=== PATIENT | female | born 1990 | race Caucasian/White ===

== ENCOUNTER 2021-06-12 08:56 | Emergency (ER) | payer OTHER, SELFPAY ==
--- NOTE | ~2021-06-12 | XR_ITS ---
EXAMINATION: XR chest 1V portable DATE: 06/12/2021 09:42 INDICATION: Wheezing, shortness of breath, and cough. TECHNIQUE: A single frontal view of the chest was obtained. COMPARISON: Chest 2 views 12/27/2016, chest CT 12/27/2016 FINDINGS: The chest demonstrates clear lungs without pneumonia, pleural effusion, or pneumothorax. Th e heart size is normal. IMPRESSION: 1. No acute cardiopulmonary disease. Reviewed, dictated and finalized at location A.
[2021-06-12 08:59] VITALS: BP 121/82; PULSE 97; RESP 16; TEMP 36.4; O2SAT 100
[2021-06-12 09:06] VITALS: O2SAT 96
--- NOTE | 2021-06-12 09:13 | ED.URI ---
HPI - URI/Sore Throat General Chief Complaint: Upper Respiratory Infection Stated Complaint: cough Time Seen by Provider: 06/12/21 09:05 Source: patient Mode of arrival: ambulatory Limitations: no limitations History of Present Illness HPI Narrative: 30 year old female with history of asthma, depression, anxiety, and reflux presents today with complaints of congestion and wheezing that started on saturday. Patient endorses cough, congestion, and left sided pleuritic pain. Patient denies fever, runny nose, sore throat, n/v/d, or abdominal pain. She has been using her inhaler without any releif at this time. Related Data Home Medications Medication Instructions Recorded Confirmed buspirone 5 mg PO BID 03/17/19 03/17/19 cyclobenzaprine 10 mg PO TID 03/17/19 03/17/19 loratadine 10 mg PO DAILY 03/17/19 03/17/19 norethindrone-e.estradiol-iron 1 tablet PO HS 03/17/19 03/17/19 [Vinnie Fe 04/20 (28)] omeprazole 20 mg PO HS 03/17/19 03/17/19 oxycodone 5 mg PO Q4H PRN 03/17/19 03/17/19 tramadol 50 mg PO Q6H PRN 03/17/19 03/17/19 Allergies Allergy/AdvReac Type Severity Reaction Status Date / Time ciprofloxacin Allergy Unknown Nausea Verified 09/02/18 13:08 pork derived (porcine) Allergy Unknown Verified 03/17/19 19:08 mushroom Allergy Unknown Uncoded 03/17/19 19:10 vicodin Allergy Unknown Uncoded 03/17/19 19:11 Review of Systems Review of Systems: CONSTITUTIONAL: Denies fever, chills, or sweats. EYES: Denies visual changes, redness, or discharge. ENT: Congestion. Denies rhinorrhea, sore throat, or otalgia. CARDIOVASCULAR: Denies chest pain, palpitations, or edema. RESPIRATORY: Left-sided pleuritic chest pain only with cough. GASTROINTESTINAL: Denies abdominal pain, nausea, vomiting, or diarrhea. GENITOURINARY: Denies dysuria or hematuria. SKIN: Denies rash or itching. MUSCULOSKELETAL: Denies back pain, joint pain, or myalgia. NEUROLOGIC: Denies headache, numbness, dizziness, or weakness. PSYCHIATRIC: Denies anxiety or depression. PMFSH Past Medical History Medical History Chiari malformation type I IBS (irritable bowel syndrome) Migraine headache Muscle spasm Family History Family History Mother Acute myocardial infarction Father Hypertension Social History Social History Smoking status: Never smoker Alcohol intake: current Drinks per week: 0 Substance use: never Substance use type: does not use Spiritual care concerns: No Agree to blood products: Yes Exam Narrative: GENERAL: Well-appearing, well-nourished, and in no acute distress. HEAD: Normocephalic, atraumatic. EYES: PERRLA and EOMI. ENT: Nares clear, no rhinorrhea or epistaxis. Mucous membranes moist. Oropharynx without tonsillar hypertrophy exudate or other lesions. Bilateral TMs pearly ham nonbulging NECK: Supple. No adenopathy or masses. No carotid bruits or JVD CHEST: Expiratory wheezing bilateral lower lobes No respiratory distress. HEART: Regular rate and rhythm. No murmur heard. Normal peripheral pulses. ABDOMEN: Soft, nontender, nondistended, normal active bowel sounds. EXTREMITIES: Normal range of motion. No edema. SKIN: Warm, dry, no rash. NEURO: No focal deficits. Alert and oriented x3. PSYCH: Normal mood and affect. Course Reevaluation(s) Reevaluation #1: Patient notes improvement with breathing after albuterol treatment. Wheezing cleared with cough at this time. Date: 06/12/21 Time: 09:55 Vital Signs Vital signs: Vital Signs Temperature 36.4 C 06/12/21 08:59 Pulse Rate 97 06/12/21 08:59 Respiratory Rate 16 06/12/21 08:59 Blood Pressure 121/82 06/12/21 08:59 Pulse Oximetry 100 06/12/21 08:59 Temperature 37.1 C 06/12/21 11:09 Pulse Rate 91 06/12/21 11:09 Respiratory Rate 16 06/12/21 11:09 Blood Pressure 109/75 06/12/21
[2021-06-12] MEDS: predniSONE 40 MG, predniSONE 10 MG 50 MG PO (09:21)
[2021-06-12] MEDS: ALBUTEROL SULFATE NEB 2.5 MG/0.5 ML INH 5 MG INHALATION (09:23)
[2021-06-12 10:06] LABS: SARS-CoV-2 RNA PCR Negative
[2021-06-12 11:09] VITALS: BP 109/75; PULSE 91; RESP 16; TEMP 37.1; O2SAT 97
== END 2021-06-12 11:15 | disposition home or self-care (01) ==
PROVIDERS: Emergency Provider Nurse Practitioner Family; PCP Physician Assistant
DX: J06.9 Acute upper respiratory infection, unspecified (principal); J45.901 Unspecified asthma with (acute) exacerbation; Z20.822 Contact with and (suspected) exposure to COVID-19; F41.9 Anxiety disorder, unspecified; F32.A Depression, unspecified; K21.9 Gastro-esophageal reflux disease without esophagitis; G93.5 Compression of brain; K58.9 Irritable bowel syndrome, unspecified
CPT/HCPCS: 71045; 94640; 99283; C9803; J7512; U0003; U0005

== ENCOUNTER 2024-11-13 10:59 | Outpatient (CLI) | payer BC, SELFPAY ==
--- OUTSIDE RECORDS SUMMARY | 2024-11-13 11:07 | XMS_ITS | Clinical Summary ---
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 Active meclizine (ANTIVERT) 25 MG Tablet Take 25 mg by mouth every 8 hours as needed. Active DULoxetine (CYMBALTA) [address] Particles Take 1 Cap by mouth daily. 30 Cap 3 8 Active Additional Information Patient taking differently:30 mg OralNIGHTLY, Reported on 12/03/2017 omeprazole (PRILOSEC) 20 MG CAPSULE DELAYED RELEASE Take 20 mg by mouth nightly. Active Active Problems Problem Noted Date Diagnosed Date Cholecystitis, acute 11/19/2017 Normal in second trimester 07/06/2016 Hiatal hernia 09/15/2015 Recurrent sinus infections 09/15/2015 Chiari malformation type I 06/07/2015 Intractable chronic migraine without aura and without status migrainosus 06/07/2015 Irritable bowel syndrome with diarrhea 6 Encounters Date Type Department Care Team Description 11/10/2024 10:35 AM CDT - 11/10/2024 11:59 PM CDT Hospital Encounter [facility] [address] [place] [address] Provider, Not On File Discharge Disposition: Discharged to home or Selfcare 11/10/2024 10:31 AM CDT - 11/10/2024 10:34 AM CDT [facility] [address] [place] [address] Provider, Not On File Discharge Disposition: Discharged to home or Selfcare 11/10/2024 10:30 AM CDT Hospital [facility] [address] [place] [address] Provider, Not On File Discharge Disposition: Discharged to home or Selfcare 11/05/2024 11:00 AM CDT - 11/05/2024 11:59 PM CDT Hospital Encounter [facility] [address] [place] [address] Markus Meyer, PAC Discharge Disposition: Discharged to home or Selfcare 11/05/2024 Travel 10/23/2024 Transcribe Orders [facility] Central Scheduling [address] [place] [address] Markus Meyer, PAC Other specified disorders of adrenal gland (Primary Dx) from Last 3 Months Family History Medical History Relation Name Comments Hypertension Father Migraines Father Cancer Maternal Grandfather colon, lung, and brain Cancer Maternal Grandmother Lung an d brain Heart Disease Mother Migraines Mother Diabetes Paternal Aunt 1 Diabetes Paternal Aunt 2 Diabetes Paternal Grandfather Melanoma Paternal Grandfather Prostate Cancer Paternal Grandfather Diabetes Paternal Grandmother Diabetes Paternal Uncle Relation Name Status Comments Father Alive Maternal Grandfather Maternal Grandmother Mother Alive Paternal Aunt 1 Alive Paternal Aunt 2 Alive Paternal Grandfather Alive Paternal Grandmother Alive Paternal Uncle Alive Social History Tobacco Use Types Packs/Day Years Used Date Smoking Tobacco: Never Smokeless Tobacco: Never Tobacco Cessation:Counseling Given: No Alcohol Use Standard Drinks/Week Comments Yes 0 (1 standard drink = 0.6 oz pur e alcohol) rarely Sexually Active Control Partners Comments Yes Male Comments Unknown Sex and Gender Information Value Date Recorded Sex Assigned at Not on file 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 Gender Identity Not on file Sexual Orientation Not on file Last Filed Vital Signs Vital Sign Reading Time Taken Comments Blood Pressure 124/80 01/16/2018 9:21 AM CDT Pulse 75 01/16/2018 9:21 AM CDT Temperature 36.7 C (98 F) 01/16/2018 9:21 AM CDT Respiratory Rate 16 01/16/2018 9:21 AM CDT Oxygen Saturation 97% 01/16/2018 9:21 AM CDT Inhaled Oxygen Concentration - - Weight 92.6 kg (204 lb 3.2 oz) 01/16/2018 9:21 A M CDT Height 166.6 cm (5' 5.6) 01/16/2018 9:21 AM CDT Body Mass Index 33.36 01/16/2018 9:21 AM CDT Plan of Treatment Health Maintenance Due Date Last Done Comments Hepatitis B Immunization (1 of 3 - 19+ 3-dose series) 11/13/2007 Pap Smear 2009 Human Papillomavirus (HPV) Immunization (1 - 3-dose SCDM series) 11/13/2015 Cervical Cancer Screening (CCS) 2018 HPV/Cotest 2018 SARS-COV-2 Immunization ( season) 2023 10/27/2020, 10/06/2020 Influenza Immunization (#1) 11/30/202412/31, 02/16/2019, 02/12/2019, Additional history exists Respiratory Syncytial Virus (RSV) Immunization (Adult) (1 - 1-dose 75+ series) 11/13/2063 DTaP/Tdap/Td Immunization Discontinued 10/29/2016 TdaP Immunization Completed 10/29/2016 Hepatitis C Virus (HCV) Screening Completed 06/08/2024 Meningococcal Immunization (ACWY) Aged Out No longer eligible based on patient's age to complete this topic Pneumococcal Immunization Combined Aged Out No longer eligible based on patient's age to complete this topic Rotavirus Immunization Aged Out No lo nger eligible based on patient's age to complete this topic Procedures Procedure Name Priority Date/Time Associated Diagnosis Comments MR REFERENCE IMAGES FOR IMAGE IMPORT Routine 11/10/2024 10:35 AM CDT MR REFERENCE IMAGES FOR IMAGE IMPORT Routine 11/10/2024 10:31 AM CDT MR REFERENCE IMAGES FOR IMAGE IMPORT Routine 11/10/2024 10:[address] ABDOMEN W/WO CONTRAST Routine 11/05/2024 12:10 PM CDT Other specified disorders of adrenal gland from Last 3 Months Results * MR REFERENCE IMAGES FOR IMAGE IMPORT (11/10/2024 10:35 AM CDT) Only the most recent of3 resultswithin the time period is included. us Not On File Provider IMG MR ORDERABLES Final Res ult * CT ABDOMEN W/WO CONTRAST (11/05/2024 12:10 PM CDT) Anatomical Region Laterality Modality Abdomen N/A Computed Tomogra phy 11/11/2024 4:44 PM CDT Impressions 11/11/2024 4:47 PM CDT IMPRESSION: 1. 8 mm right adrenal nodule compatible with an adrenal adenoma. 2. Fluid structure within the gallbladder fossa measuring 4.1 x 2.1 cm. These findings may represent subtotal cholecystectomy. If complete cholecystectomy was performed then this may represent a dilated cystic duct remnant. Correlate with history. Narrative 11/11/2024 4:47 PM CDT EXAM DESCRIPTION: CT ABDOMEN W/WO CONTRAST REASON FOR STUDY: Right adrenal mass seen on MRI t spine 08/23, has been having right sided pain for months. Hx cholecystectomy. TECHNIQUE: CT scan of the abdomen performed without and with intravenous and without oral contrast using helical scanning technique with dynamic intravenous contrast injection. Reconstructed coronal and sagittal MPR images reviewed. All images stored on PACS. Automated exposure control was used as a dose optimization technique for this examination. CONTRAST TYPE/DOSE: 100mL of IOPAMIDOL 76 % IV SOLN injected via Intravenous COMPARISON: MRI thoracic and lumbar spine 08/22/2024 FINDINGS: LOWER CHEST: Subsegmental atelectasis in the right middle lobe. LIVER: Normal size. No identified cystic or solid masses. GALLBLADDER: There are clips in the gallbladder fossa region. A fluid structure within the gallbladder fossa measuring 4.1 x 2.1 cm is noted (series 3, image 36). These findings may represent subtotal cholecystectomy. If complete cholecystectomy was performed then this may represent a dilated cystic duct remnant. Correlate with history. BILE DUCTS: No intrahepatic or extrahepatic ductal dilatation. SPLEEN: Normal size. No focal lesions. PANCREAS: No identified cystic or solid masses. No significant calcifications. No adjacent inflammation or peripancreatic fluid collections. Pancreatic duct not dilated. ADRENALS: There is a 8 mm nodule arising from the right adrenal medial limb. Noncontrast attenuation measures 11. Absolute washout 91%. KIDNEYS/URINARY TRACT: No identified significant cystic or solid masses. No stones. No hydronephrosis or hydroureter. Symmetric enhancement. GI: Trace hiatal hernia. No dilated bowel loops. No obvious wall thickening. Scattered diverticular disease without diverticulitis. PERITONEUM: No ascites or free air. RETROPERITONEUM: No adenopathy. VASCULATURE: No abdominal aortic aneurysm. MUSCULOSKELETAL: Chronic healed right anterolateral rib fractures. OTHER: No other significant abnormality. THIS IS AN ELECTRONICALLY VERIFIED FINAL REPORT 11/11/2024 4:44 PM - Electronically signed by Guy Staples M.D. MM: MM Report ID: [id number] Reading Location: [id number] Procedure Note Guy Staples MD - 11/11/2024 EXAM DESCRIPTION: CT ABDOMEN W/WO CONTRAST REASON FOR STUDY: Right adrenal mass seen on MRI t spine 08/23, has been having right sided pain for months. Hx cholecystectomy. TECHNIQUE: CT scan of the abdomen performed without and with intravenous and without oral contrast using helical scanning technique with dynamic intravenous contrast injection. Reconstructed coronal and sagittal MPR images reviewed. All images stored on PACS. Automated exposure control was used as a dose optimization technique for this examination. CONTRAST TYPE/DOSE: 100mL of IOPAMIDOL 76 % IV SOLN injected via Intravenous COMPARISON: MRI thoracic and lumbar spine 08/22/2024 FINDINGS: LOWER CHEST: Subsegmental atelectasis in the right middle lobe. LIVER: Normal size. No identified cystic or solid masses. GALLBLADDER: There are clips in the gallbladder fossa region. A fluid structure within the gallbladder fossa measuring 4.1 x 2.1 cm is noted (series 3, image 36). These findings may represent subtotal cholecystectomy. If complete cholecystectomy was performed then this may represent a dilated cystic duct remnant. Correlate with history. BILE DUCTS: No intrahepatic or extrahepatic ductal dilatation. SPLEEN: Normal size. No focal lesions. PANCREAS: No identified cystic or solid masses. No significant calcifications. No adjacent inflammation or peripancreatic fluid collections. Pancreatic duct not dilated. ADRENALS: There is a 8 mm nodule arising from the right adrenal medial limb. Noncontrast attenuation measures 11. Absolute washout 91%. KIDNEYS/URINARY TRACT: No identified significant cystic or solid masses. No stones. No hydronephrosis or hydroureter. Symmetric enhancement. GI: Trace hiatal hernia. No dilated bowel loops. No obvious wall thickening. Scattered diverticular disease without diverticulitis. PERITONEUM: No ascites or free air. RETROPERITONEUM: No adenopathy. VASCULATURE: No abdominal aortic aneurysm. MUSCULOSKELETAL: Chronic healed right anterolateral rib fractures. OTHER: No other significant abnormality. THIS IS AN ELECTRONICALLY VERIFIED FINAL REPORT 11/11/2024 4:44 PM - Electronically signed by Guy Staples M.D. MM: MM Report ID: [id number] Reading Location: [id number] IMPRESSION: 1. 8 mm right adrenal nodule compatible with an adrenal adenoma. 2. Fluid structure within the gallbladder fossa measuring 4.1 x 2.1 cm. These findings may represent subtotal cholecystectomy. If complete cholecystectomy was performed then this may represent a dilated cystic duct remnant. Correlate with history. 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
--- OUTSIDE RECORDS SUMMARY | 2024-11-13 11:07 | XMS_ITS | Clinical Summary ---
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 the right adrenal gland is incompletely evaluated. Lumbar spine: The alignment is normal. A 1.4 cm hemangioma within the L3 vertebral body. Vertebral bodies are normal in height without evidence of acute fracture. The visible bone marrow is normal. The conus medullaris terminates at the level of L2 and the distal spinal cord signal intensity is normal. A 6 x 5 mm synovial cyst in the left L3-L4 facet joint. Mild posterior disc bulge at L5-S1. The central canal is patent. The facets appear normal. No neural foraminal stenosis is seen. No soft tissue abnormality is identified. No evidence of syrinx. Procedure Note Rebeca Cid MD - 09/02/2024 PROCEDURE: MRI THORACIC SPINE WO CONTRAST, MRI LUMBAR SPINE WOCONTRAST, DATE/TIME OF EXAM: 08/22/2024 3:45 PM, LOCATION [facility] INDICATION: G95.0: Syrinx (HCC) M54.16: Lumbar radiculopathy EXAMINATION: Magnetic resonance imaging (MRI) of the thoracic and lumbar spine without contrast TECHNIQUE: MRI of the thoracic and lumbar spine was performed without intravenous contrast according to standard protocol. COMPARISON: No prior study is available for comparison at the time ofthis dictation. FINDINGS: Thoracic spine: The alignment is normal. Vertebral bodies are normal in height without evidence of acute fracture. Other than mild degenerative endplatechanges at multiple levels, the bone marrow signal is normal. The thoracicspinal cord appears normal. There is mild multilevel degenerative disc disease. There is a 4 mmright paracentral disc protrusion, causing chronic appearing compression andmild myelomalacia of the right aspect of the spinal cord. Otherwise, thecentral canal is patent. There are varying degrees of mild facet osteoarthritis.No neural foraminal stenosis is seen. No evidence of syrinx. A 14 x 8 mm nodule in the right adrenal gland is incompletely evaluated. Lumbar spine: The alignment is normal. A 1.4 cm hemangioma within the L3 vertebralbody. Vertebral bodies are normal in height without evidence of acutefracture. The visible bone marrow is normal. The conus medullaris terminates atthe level of L2 and the distal spinal cord signal intensity is normal. A 6 x5 mm synovial cyst in the left L3-L4 facet joint. Mild posterior disc bulge at L5-S1. The central canal is patent. Thefacets appear normal. No neural foraminal stenosis is seen. No soft tissue abnormality is identified. No evidence of syrinx. IMPRESSION: 1.No evidence of syrinx in the spinal cord. 2.A 4 mm right paracentral disc protrusion, causing chronic appearing compression and mild myelomalacia of the right aspect of the spinalcord. 3.No significant central canal or neuroforamina stenosis in the lumbar spine. 4.Indeterminant 14 x 8 mm nodule in the right adrenal gland. Recommend aCT of the abdomen using adrenal protocol to further evaluate. The report is dictated by Luis Alberto Rosado MD, (Distributor Sales Manager) Rebeca Tom MD have personally reviewed and interpreted this examination/study. > Interpreting Provider: Rebeca Cid MD on 09/02/2024 10:29 AM Diamond Hammer MD MR ORDERABLES Final Result * MRI Thoracic Spine Wo Contrast (08/22/2024 3:45 PM CDT) Anatomical Region Laterality Modality Chest Magnetic Resonan ce 09/02/2024 9:14 AM CDT Impressions 09/02/2024 10:29 AM CDT IMPRESSION: 1.No evidence of syrinx in the spinal cord. 2.A 4 mm right paracentral disc protrusion, causing chronic appearing compression and mild myelomalacia of the right aspect of the spinal cord. 3.No significant central canal or neuroforamina stenosis in the lumbar spine. 4.Indeterminant 14 x 8 mm nodule in the right adrenal gland. Recommend a CT of the abdomen using adrenal protocol to further evaluate. The report is dictated by Luis Alberto Rosado MD, (Distributor Sales Manager) Rebeca Tom MD have personally reviewed and interpreted this examination/study. > Interpreting Provider: Rebeca Cid MD on 09/02/2024 10:29 AM Narrative 09/02/2024 10:29 AM CDT PROCEDURE: MRI THORACIC SPINE WO CONTRAST, MRI LUMBAR SPINE WO CONTRAST, DATE/TIME OF EXAM: 08/22/2024 3:45 PM, LOCATION [facility] INDICATION: G95.0: Syrinx (HCC) M54.16: Lumbar radiculopathy EXAMINATION: Magnetic resonance imaging (MRI) of the thoracic and lumbar spine without contrast TECHNIQUE: MRI of the thoracic and lumbar spine was performed without intravenous contrast according to standard protocol. COMPARISON: No prior study is available for comparison at the time of this dictation. FINDINGS: Thoracic spine: The alignment is normal. Vertebral bodies are normal in height without evidence of acute fracture. Other than mild degenerative endplate changes at multiple levels, the bone marrow signal is normal. The thoracic spinal cord appears normal. There is mild multilevel degenerative disc disease. There is a 4 mm right paracentral disc protrusion, causing chronic appearing compression and mild myelomalacia of the right aspect of the spinal cord. Otherwise, the central canal is patent. There are varying degrees of mild facet osteoarthritis. No neural foraminal stenosis is seen. No evidence of syrinx. A 14 x 8 mm nodule in the right adrenal gland is incompletely evaluated. Lumbar spine: The alignment is normal. A 1.4 cm hemangioma within the L3 vertebral body. Vertebral bodies are normal in height without evidence of acute fracture. The visible bone marrow is normal. The conus medullaris terminates at the level of L2 and the distal spinal cord signal intensity is normal. A 6 x 5 mm synovial cyst in the left L3-L4 facet joint. Mild posterior disc bulge at L5-S1. The central canal is patent. The facets appear normal. No neural foraminal stenosis is seen. No soft tissue abnormality is identified. No evidence of syrinx. Procedure Note Rebeca Cid MD - 09/02/2024 PROCEDURE: MRI THORACIC SPINE WO CONTRAST, MRI LUMBAR SPINE WOCONTRAST, DATE/TIME OF EXAM: 08/22/2024 3:45 PM, LOCATION [facility] INDICATION: G95.0: Syrinx (HCC) M54.16: Lumbar radiculopathy EXAMINATION: Magnetic resonance imaging (MRI) of the thoracic and lumbar spine without contrast TECHNIQUE: MRI of the thoracic and lumbar spine was performed without intravenous contrast according to standard protocol. COMPARISON: No prior study is available for comparison at the time ofthis dictation. FINDINGS: Thoracic spine: The alignment is normal. Vertebral bodies are normal in height without evidence of acute fracture. Other than mild degenerative endplatechanges at multiple levels, the bone marrow signal is normal. The thoracicspinal cord appears normal. There is mild multilevel degenerative disc disease. There is a 4 mmright paracentral disc protrusion, causing chronic appearing compression andmild myelomalacia of the right aspect of the spinal cord. Otherwise, thecentral canal is patent. There are varying degrees of mild facet osteoarthritis.No neural foraminal stenosis is seen. No evidence of syrinx. A 14 x 8 mm nodule in the right adrenal gland is incompletely evaluated. Lumbar spine: The alignment is normal. A 1.4 cm hemangioma within the L3 vertebralbody. Vertebral bodies are normal in height without evidence of acutefracture. The visible bone marrow is normal. The conus medullaris terminates atthe level of L2 and the distal spinal cord signal intensity is normal. A 6 x5 mm synovial cyst in the left L3-L4 facet joint. Mild posterior disc bulge at L5-S1. The central canal is patent. Thefacets appear normal. No neural foraminal stenosis is seen. No soft tissue abnormality is identified. No evidence of syrinx. IMPRESSION: 1.No evidence of syrinx in the spinal cord. 2.A 4 mm right paracentral disc protrusion, causing chronic appearing compression and mild myelomalacia of the right aspect of the spinalcord. 3.No significant central canal or neuroforamina stenosis in the lumbar spine. 4.Indeterminant 14 x 8 mm nodule in the right adrenal gland. Recommend aCT of the abdomen using adrenal protocol to further evaluate. The report is dictated by Luis Alberto Rosado MD, (Distributor Sales Manager) I, Rebeca Cid MD have personally reviewed and interpreted this examination/study. > Interpreting Provider: Rebeca Cid MD on 09/02/2024 10:29 AM Diamond Hammer MD MR ORDERABLES Final Result * MRI Cervical Spine Wo Contrast (08/22/2024 3:45 PM CDT) Anatomical Region Laterality Modality Pelvis Magnetic Resonan ce 09/01/2024 3:28 PM CDT Impressions 09/01/2024 3:32 PM CDT IMPRESSION: 1. Redemonstration of postoperative changes of suboccipital craniotomy for decompression. The cerebellar tonsils are at appreciated positions. No stenosis in the foramen magnum. No evidence of syrinx or abnormalities in the cervical spinal cord. > Interpreting Provider: Rebeca Cid MD on 09/01/2024 3:32 PM Narrative 09/01/2024 3:32 PM CDT PROCEDURE: MRI CERVICAL SPINE WO CONTRAST, DATE/TIME OF EXAM: 08/22/2024 3:45 PM, LOCATION [facility] INDICATION: G95.0: Syrinx (HCC) ADDITIONAL CLINICAL INFORMATION: Ordering Provider Reason For Exam: Technologist Note: Additional: EXAMINATION: Magnetic resonance imaging (MRI) of the cervical spine without contrast TECHNIQUE: MRI of the cervical spine was performed without intravenous contrast according to standard protocol. COMPARISON: Cervical spine MRI dated 05/16/2023. FINDINGS: Redemonstration of postoperative changes of suboccipital craniotomy for decompression. The cerebellar tonsils are at appreciated positions. No stenosis in the foramen magnum. No evidence of syrinx or other cord abnormalities. The alignment is normal. The prevertebral soft tissue is normal in thickness. Vertebral bodies are normal in height without evidence of acute fracture. The visible bone marrow is normal. The craniocervical junction is normal. The spinal cord appears normal. The intervertebral discs appear normal. The central canal is patent. The facets appear normal. The uncovertebral joints appear normal. No neural foraminal stenosis is seen. Normal flow voids are identified in the vertebral arteries. No soft tissue abnormality is identified. Procedure Note Rebeca Cid MD - 09/01/2024 PROCEDURE: MRI CERVICAL SPINE WO CONTRAST, DATE/TIME OF EXAM:08/22/2024 3:45 PM, LOCATION [facility] INDICATION: G95.0: Syrinx (HCC) ADDITIONAL CLINICAL INFORMATION: Ordering Provider Reason For Exam: Technologist Note: Additional: EXAMINATION: Magnetic resonance imaging (MRI) of the cervical spinewithout contrast TECHNIQUE: MRI of the cervical spine was performed without intravenous contrast according to standard protocol. COMPARISON: Cervical spine MRI dated 05/16/2023. FINDINGS: Redemonstration of postoperative changes of suboccipital craniotomy for decompression. The cerebellar tonsils are at appreciated positions. No stenosis in the foramen magnum. No evidence of syrinx or other cord abnormalities. The alignment is normal. The prevertebral soft tissue is normal in thickness. Vertebral bodies are normal in height without evidence ofacute fracture. The visible bone marrow is normal. The craniocervical junctionis normal. The spinal cord appears normal. The intervertebral discs appear normal. The central canal is patent. The facets appear normal. The uncovertebral joints appear normal. No neural foraminal stenosis is seen. Normal flow voids are identified in the vertebral arteries. No softtissue abnormality is identified. IMPRESSION: 1. Redemonstration of postoperative changes of suboccipital craniotomyfor decompression. The cerebellar tonsils are at appreciated positions. No stenosis in the foramen magnum. No evidence of syrinx or abnormalitiesin the cervical spinal cord. > Interpreting Provider: Rebeca Cid MD on 09/01/2024 3:32 PM Diamond Hammer MD MR ORDERABLES Final Result from Last 3 Months Insurance MEDICAID - OUT OF STATE ANTHEM ANTHEM Advance Directives * Full Code (Latest Code Status on File) Date Activated Date Inactivated Comments 03/12/2019 1:45 PM 03/17/2019 4:20 PM Care Teams Pododermatologist Relationship Specialty Start Date End Date Markus Meyer PA [address] [place] [address] PCP - General Physician Ore Buyer 09/22/13
--- OUTSIDE RECORDS SUMMARY | 2024-11-13 11:07 | XMS_ITS | Clinical Summary ---
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 Legal Sex Female 4:59 PM CDT Gender Identity Not on file Sexual Orientation Not on file Last Filed Vital Signs Vital Sign Reading Time Taken Comments Blood Pressure 129/89 04/15/2024 3:19 PM SPRINKLER WORKER Pulse 88 04/15/2024 3:19 PM SPRINKLER WORKER Temperature 36.3 C (97.3 F) 04/15/2024 12:48 PM SPRINKLER WORKER Respiratory Rate 20 04/15/2024 3:19 PM SPRINKLER WORKER Oxygen Saturation 99% 04/15/2024 3:19 PM SPRINKLER WORKER Inhaled Oxygen Concentration - - Weight 97.1 kg (214 lb 1.1 oz) 04/15/2024 12:48 PM SPRINKLER WORKER Height 167.6 cm (5' 6) 04/15/2024 12:48 PM SPRINKLER WORKER Body Mass Index 34.55 04/15/2024 12:48 PM SPRINKLER WORKER Plan of Treatment Health Maintenance Due Date Last Done Comments Annual Physical 11/13/1991 Hepatitis C 2006 Hepatitis B Vaccines (1 of 3 - 19+ 3-dose series) 11/13/2007 HPV Vaccines (1 - 3-dose SCD M series) 11/13/2015 Cervical Cancer Screening Myron molina with HPV Testing (Age 30 to 64) Every 5 Years 2018 COVID-19 Vaccine (2023-2 5 season) 2023 10/27/2020, 10/06/2020 Cervical Cancer Screening Pa p Smear (Age 30 to 64) Every 3 Years 08/03/2024 08/03/2021 Cervical Cancer Screening wi th HPV 08/03/2024 DTaP, Tdap and Td Vaccines ( 2 - Td or Tdap) 10/29/2026 10/29/2016 Meningococcal B Vaccine Aged Out No l onger eligible based on patient's age to complete this topic Meningococcal Vaccine Aged Out No natasha sravanthi eligible based on patient's age to complete this topic Pneumococcal Vaccine: Pediatrics (0 to 5 Years) and At-Risk Patients (6 to 49 Years) Aged Out No longer eligible b ased on patient's age to complete this topic RSV Immunizations Under 20 Months Aged Out No longer eligible b ased on patient's age to complete this topic Insurance [address] Care Teams Breaker Operator Relationship Specialty Start Date End Date Markus Meyer PA PCP - General PHYSICIAN SALES REPRESENTATIVE [employer] 04/15/24
[2024-11-13 11:43] LABS: Hemoglobin A1C 5.6 % (<5.7)
[2024-11-13 11:56] LABS: Alanine Aminotransferase 33 U/L (6-35); Albumin Level 4.7 g/dL (3.5-5.1); Alkaline Phosphatase 78 U/L (38-126); Anion Gap 11 mmol/L (4-12); Aspartate Amino Transferase 30 U/L (14-36); Bilirubin,Total 0.7 mg/dL (0.2-1.3); Blood Urea Nitrogen 14 mg/dL (7-17); Calcium 9.8 mg/dL (8.4-10.2); Carbon Dioxide 25 mmol/L (22-30); Chloride 102 mmol/L (98-107); Estimated Glomerular Filt Rate > 60; Glucose 104 mg/dL (65-110); Potassium 4.3 mmol/L (3.4-5.0); Sodium 138 mmol/L (137-145); Total Protein 8.1 g/dL (6.3-8.2)
== END 2024-11-13 11:00 | disposition home or self-care (01) ==
LOC: ANHLAB 11:04
PROVIDERS: PCP Physician Assistant; Visit Provider Physician Assistant
DX: R73.01 Impaired fasting glucose (principal)
CPT/HCPCS: 36415; 80053; 83036